=== PATIENT | male | born 1950 | race Caucasian/White ===

== ENCOUNTER 2023-06-15 11:59 | Inpatient (IN) | payer OTHER ==
[~2023-06-15] VITALS: Ht 172.7 cm; Wt 110.0 kg
[2023-06-15 12:30] VITALS: PULSE 80; RESP 22; O2SAT 95
[2023-06-15 13:45] LABS: Basophils # (auto) 0.1 10 ^3/uL (0-0.2); Eosinophils # (auto) 0.2 10 ^3/uL (0-0.8); Eosinophils % (auto) 2.2 % (0.0-7.0); Lymphocytes % (auto) 25.8 % (10.0-50.0); Monocytes # (auto) 0.9 10 ^3/uL (0-1.3); Neutrophils % (auto) 59.4 % (37.0-80.0)
[2023-06-15 13:48] LABS: Basophils % (auto) 1.1 % (0.0-2.0); Hematocrit 47.8 % (41.0-53.0); Mean Corpuscular Hemoglobin 36.2 pg (28.0-32.0); Mean Corpuscular Hgb Conc. 33.6 g/dL (32.0-36.0); Mean Corpuscular Volume 107.7 fL (80.0-100.0); Monocytes % (auto) 11.5 % (0.0-12.0); Neutrophils # (auto) 4.6 10 ^3/uL (1.6-8.6); Nucleated Red Blood Cells % 0.1 %; Red Blood Cells 4.44 10^6/uL (4.5-5.90); Red Cell Distribution Width 13.9 % (11.8-14.3); White Blood Cell 7.7 10^3/uL (4.4-10.8)
[2023-06-15 14:18] LABS: Albumin 2.7 g/dL (3.4-5.0); Calcium 8.8 mg/dL (8.5-10.1); INR 1.07 (0.9-1.15); Magnesium 2.1 mg/dL (1.6-2.6); Partial Thromboplastin Time 31.8 SEC (24.5-34.5); Potassium 3.5 mmol/L (3.5-5.1)
[2023-06-15 14:23] LABS: BUN/Creatinine Ratio 9.7 (10.0-20.0); Bilirubin, Total 0.4 mg/dL (0.2-1.0); Total Protein 6.3 g/dL (6.4-8.2)
[2023-06-15 14:59] LABS: Urine Bacteria NONE SEEN /hpf (None Seen); Urine Blood Negative /uL (Negative); Urine Hyaline Cast FEW /lpf (0 - 2); Urine Mucus FEW (None Seen); Urine Specific Gravity 1.021 (1.001-1.035); Urine WBC 5 /hpf (0 - 3)
[2023-06-15] MEDS ORDERED: NITROGLYCERIN 0.4 MG SL TAB SL PRN (16:15)
[2023-06-15] MEDS ORDERED: METOPROLOL TARTRATE 1MG/1ML-5ML VIAL IV PRN (16:15)
[2023-06-15] MEDS ORDERED: MORPHINE SULFATE INJ 2 MG/ml SYRG IV PRN (16:15)
[2023-06-15 17:00] VITALS: TEMP 98.2
[2023-06-15] MEDS ORDERED: hydrALAZINE HCL 20 MG/ML VL IV ONE (19:15)
[2023-06-15] MEDS ORDERED: HYDROcodone-ACET 5/325MG TAB PO PRN (21:30)
[2023-06-15] MEDS ORDERED: hydrALAZINE HCL 10 MG TAB PO PRN (21:30)
[2023-06-15] MEDS ORDERED: ACETAMINOPHEN 325 MG TAB PO PRN (21:30)
[2023-06-15] MEDS ORDERED: ONDANSETRON HCL 4 MG/2 ML VIAL IV PRN (21:30)
[2023-06-15] MEDS: METOPROLOL TARTRATE 25 MG TAB PO SCH (23:13)
[2023-06-16 01:15] VITALS: PULSE 87; RESP 14; O2SAT 95
[2023-06-16 10:19] VITALS: PULSE 85; RESP 20; O2SAT 96
[2023-06-16] MEDS: METOPROLOL TARTRATE 25 MG TAB PO SCH (11:31)
[2023-06-16] MEDS ORDERED: FLECAINIDE ACETATE 50 MG TAB PO SCH (11:45)
[2023-06-16] MEDS ORDERED: amLODIPine BESYLATE 5 MG TAB PO ONE (11:45)
[2023-06-16] MEDS ORDERED: MONT-8 PO (12:58)
[2023-06-16] MEDS ORDERED: METO25TA93 PO ×2 (12:58→14:34)
[2023-06-16] MEDS ORDERED: FLEC100T PO (12:58)
[2023-06-16] MEDS ORDERED: SIMV40TA18 PO (12:58)
[2023-06-16] MEDS ORDERED: APIX2.5T PO (12:58)
[2023-06-16] MEDS ORDERED: HYDR-4798 PO (12:58)
[2023-06-16] MEDS ORDERED: FENO160T PO (12:58)
[2023-06-16] MEDS ORDERED: ALBUAER3 IN (12:58)
[2023-06-16] MEDS ORDERED: LOSARTAN POTASSIUM 50 MG TAB PO ONE (13:45)
[2023-06-16 16:09] VITALS: BP 160/67; PULSE 69; RESP 18; O2SAT 94
[2023-06-17] MEDS ORDERED: METOPROLOL SUCCINATE XL 50 MG TAB PO SCH (10:00)
== END 2023-06-16 16:18 | disposition home health service (06) | DRG 310 ==
LOC: ER 11:59 → EDBD 11:59 → TELE 16:06
PROVIDERS: ADMIT Internal Medicine; ATTEND Internal Medicine
DX: I48.20 Chronic atrial fibrillation, unspecified (principal); I10 Essential (primary) hypertension; F17.210 Nicotine dependence, cigarettes, uncomplicated; E66.9 Obesity, unspecified; J44.9 Chronic obstructive pulmonary disease, unspecified; E78.5 Hyperlipidemia, unspecified; Z91.013 Allergy to seafood; Z88.8 Allergy status to other drugs, medicaments and biological substances; Z91.012 Allergy to eggs; Z68.36 Body mass index [BMI] 36.0-36.9, adult
CPT/HCPCS: 36415; 71045; 74176; 80053; 81001; 83735; 83880; 84484; 85025; 85610; 85730; 93005; 93306; 96374; 97163; 99291; G0378

== ENCOUNTER 2025-03-31 06:53 | Day surgery (SDC) | payer OTHER ==
[~2025-03-31] VITALS: Ht 167.6 cm; Wt 101.6 kg
[~2025-03-31 06:53] MED LIST: AMIO200T33 PO; APIX5TAB PO; CETI10CA PO; FENO160T PO; FLUT1AER3 IN; LOSA-534 PO; MONT-8 PO; SIMV40TA18 PO
[2025-03-31] MEDS: fentaNYL CITRATE 100 MCG/2 ML VL IV ONE (07:45)
[2025-03-31] MEDS: LIDOCAINE VISCOUS 2% 15ML UD PO ONE (07:45)
[2025-03-31] MEDS: MIDAZOLAM HCL 2MG/2ML 2ml VIAL (1mg/ml) IV ONE (07:45)
[2025-03-31] MEDS: diphenhdrAMINE HCL 50 MG/1 ML VL ONE (08:58)
[2025-03-31 09:15] VITALS: BP 170/70; PULSE 73; RESP 12; O2SAT 96
[2025-03-31 09:30] VITALS: BP 153/75; PULSE 70; RESP 24; O2SAT 90
--- NOTE | 2025-03-31 09:39 | DVHOP2 ---
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 The patient was brought to the cardiac slab off mill tender in n.p.o. state. the patient was given 15 ml of oral viscous lidocaine. the patient was placed in a left lateral decubitus position with bite block in mouth. NExt conscious sedation was administered per slab off mill tender protocol with _ 2.5 _ mg of versed and ___50 mcg of fentanyl. Next a DES probe was advanced to the mid esophagus with ease and multiple planar images obtained. At the completion of the procedure , probe was removed and there were no immediate complications. FINDINGS: Left Ventricle: Normal LV size and function, LVEF estimated at 55% Right Ventricle: NOrmal RV function Left atrium: enlarged, LA Right atrium: mild enlarged Left atrial appendage: no thrombus noted, decreased velocity on PW monitoring, no A wave noted, Aortic valve: trileaflet valve, mildly stenostic, mild aortic regurg Mitral Valve: structurally normal, moderate mitral regurg, no MS Tricuspid Valve: mild tricuspid regurgitaiton, no TS Pulmonic Valve: strucutrally normal, no severe PIor PS Interatrial septum: negative color flow for R to L shunt Ascending aorta: no severe plaquing Next we sync'ed to 120 J and 1 shock delivered with successful samaritan of Normal Sinus rhythm. CONCLUSIONS: 1. Successful DES guided DCCV PLAN: cont doac pt needs repeat device check as surfact ecg shows regular rate in 80s with long 1st deg avb, no obvious flutter waves noted MDT pacer check outpt MARIANNE FAIR MD March 31, 2025 09:39
[2025-03-31 09:45] VITALS: BP 156/72; PULSE 63; RESP 20; O2SAT 92
[2025-03-31 10:00] VITALS: BP 157/71; PULSE 63; RESP 19; O2SAT 92
[2025-03-31 10:15] VITALS: BP 162/79; PULSE 68; RESP 20; O2SAT 94
--- NOTE | 2025-04-01 09:49 | ECG ---
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
--- NOTE | 2025-04-01 10:01 | ECG ---
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
== END 2025-03-31 10:28 | disposition home or self-care (01) ==
LOC: CATH 06:53
PROVIDERS: ATTEND Internal Medicine
DX: I48.91 Unspecified atrial fibrillation (principal); I44.0 Atrioventricular block, first degree
CPT/HCPCS: 92960; 93005; 93312; J1200; J2250; J3010; 99152